=== PATIENT | female | born 1995 | race Caucasian/White ===

== ENCOUNTER → 2024-05-27 | Outpatient (CLI) | payer OTHER | LOC: M RAD 11:46 | PROVIDERS: ATTEND Obstetrics & Gynecology | DX: O26.899 Other specified pregnancy related conditions, unspecified trimester (principal) ==

== ENCOUNTER → 2024-07-22 | Outpatient (CLI) | payer OTHER ==
[~2024-07-22] MED LIST: CEPH500C; LABE100T6; MECL-209 PO; ONDA-282; SYNT25TA
== END ==
LOC: M EKG 14:51
PROVIDERS: ATTEND Obstetrics & Gynecology
DX: O99.281 Endocrine, nutritional and metabolic diseases complicating pregnancy, first trimester (principal); E03.9 Hypothyroidism, unspecified; Z3A.14 14 weeks gestation of pregnancy; O10.011 Pre-existing essential hypertension complicating pregnancy, first trimester

== ENCOUNTER 2024-07-24 17:28 | Emergency (ER) | payer OTHER ==
[~2024-07-24] VITALS: Ht 157.5 cm; Wt 119.7 kg
[2024-07-24] MEDS ORDERED: SYNT25TA (17:36)
[2024-07-24] MEDS ORDERED: CEPH500C (17:36)
[2024-07-24] MEDS ORDERED: ONDA-282 (17:36)
[2024-07-24] MEDS ORDERED: LABE100T6 (17:36)
[2024-07-24 18:36] LABS: BASO % 0.5 % (0.0-1.0); EOS # 0.4 10^3/uL (0.0-0.5); EOS % 5.5 % (0.0-3.0); HEMATOCRIT 38.3 % (36.0-47.0); HEMOGLOBIN 13.6 g/dl (12.0-15.5); LYMPH # 1.5 10^3/uL (1.5-5.0); LYMPH % 18.3 % (24.0-44.0); MEAN CORPUSCULAR HEMOGLOBIN 33.3 pg (27.0-33.0); MEAN CORPUSCULAR HGB CONC 35.5 g/dl (32.0-36.5); MEAN CORPUSCULAR VOLUME 93.6 fl (80.0-96.0); MONO # 0.6 10^3/uL (0.0-0.8); MONO % 7.6 % (2.0-8.0); NEUTROPHILS # 5.5 10^3/uL (1.5-8.5); NEUTROPHILS % 67.7 % (36.0-66.0); PLATELET COUNT, AUTOMATED 290 10^3/uL (150-450); RED BLOOD COUNT 4.09 10^6/uL (4.00-5.40)
[2024-07-24 18:55] LABS: ALKALINE PHOSPHATASE 38 U/L (35-104); ALT/SGPT 24 U/L (7.0-40); AST/SGOT 15 U/L (<34); BILIRUBIN,DIRECT < 0.1 MG/DL (<0.4); BILIRUBIN,TOTAL 0.4 MG/DL (0.3-1.2); BLOOD UREA NITROGEN 8 MG/DL (9-23); CALCIUM LEVEL 9.1 MG/DL (8.5-10.1); CARBON DIOXIDE LEVEL 22 MMOL/L (20-31); CHLORIDE LEVEL 107 MMOL/L (98-107); CREATININE FOR GFR 0.56 MG/DL (0.55-1.30); GLOMERULAR FILTRATION RATE > 60.0 (>60); GLUCOSE, FASTING 80 MG/DL (60-100); POTASSIUM SERUM 3.9 MMOL/L (3.5-5.1); SODIUM LEVEL 139 MMOL/L (136-145); TOTAL PROTEIN 6.5 G/DL (5.7-8.2)
[2024-07-24 19:58] LABS: CREATININE,RANDOM URINE 40.3 MG/DL
[2024-07-24 20:05] LABS: FREE T4 1.47 NG/DL (0.89-1.76); THYROID STIMULATING HORMONE 2.957 uIU/ML (0.55-4.78)
[2024-07-24] MEDS: NS (Normal Saline) 0.9% 1,000 ML IV ONE (20:07)
[2024-07-24 20:28] LABS: TOTAL PROTEIN,RANDOM URINE < 6.0 MG/DL (0.0-14.0)
[2024-07-24] MEDS: ONDANSETRON 4MG 2ML VIAL IV ONE (20:38)
[2024-07-24 21:00] LABS: MAGNESIUM LEVEL 1.9 MG/DL (1.8-2.4)
[2024-07-24 21:13] LABS: KETONE, URINE AUTO RFX 1+ mg/dL (NEGATIVE); LEUKOCYTE ESTERASE UR AUTO RFX NEGATIVE (NEGATIVE); MUCUS, URINE RFX SMALL (NEGATIVE); NITRITE, URINE AUTO RFX NEGATIVE (NEGATIVE); RBC, URINE AUTO RFX 0 /HPF (0-3); SQUAM EPITHELIAL CELL UR AURFX 3 /HPF (0-6); WBC, URINE AUTO RFX 1 /HPF (0-3)
[2024-07-24] MEDS: MECLIZINE 25 MG TABLET PO ONE ×2 (21:33→23:58)
[2024-07-24 22:37] LABS: CK-MB VALUE MASS < 1.0 NG/ML (<3.6)
[2024-07-24 22:42] LABS: CPK CREATINE PHOSPHOKINASE 71 U/L (34-145)
[2024-07-24] MEDS ORDERED: MECL-209 PO (23:21)
[2024-07-25 01:48] VITALS: BP 156/72; TEMP 96.7; O2SAT 100; O2SAT 99
[2024-07-25] MEDS ORDERED: MECL-209 PO (01:49)
== END 2024-07-25 01:56 | disposition home or self-care (01) ==
LOC: M ED 17:28
DX: O98.512 Other viral diseases complicating pregnancy, second trimester (principal); B34.2 Coronavirus infection, unspecified; R42 Dizziness and giddiness; O99.282 Endocrine, nutritional and metabolic diseases complicating pregnancy, second trimester; O13.2 Gestational [pregnancy-induced] hypertension without significant proteinuria, second trimester; Z3A.17 17 weeks gestation of pregnancy
CPT/HCPCS: 76815; 80048; 80076; 81001; 82550; 82553; 82570; 83735; 84156; 84439; 84443; 84484; 85025; 86850; 86900; 86901; 87486; 87581; 87633; 87798; 93005; 93041; 94760; 96361; 96374; 99285; J2405

== ENCOUNTER 2024-08-11 18:36 | Emergency (ER) | payer OTHER ==
[~2024-08-11] VITALS: Ht 157.5 cm; Wt 122.3 kg
[2024-08-11 20:28] LABS: APPEARANCE, URINE HAZY (CLEAR); BACTERIA, URINE AUTO NEGATIVE (NEGATIVE); BILIRUBIN, URINE AUTO NEGATIVE (NEGATIVE); BLOOD, URINE BLOOD NEGATIVE (NEGATIVE); COLOR, URINE YELLOW (YELLOW); GLUCOSE, URINE (UA) AUTO NEGATIVE (NEGATIVE); KETONE, URINE AUTO NEGATIVE (NEGATIVE); LEUKOCYTE ESTERASE, URINE AUTO NEGATIVE (NEGATIVE); MUCUS, URINE SMALL (NEGATIVE); NITRITE, URINE AUTO NEGATIVE (NEGATIVE); PROTEIN, URINE AUTO 1+ mg/dL (NEGATIVE); RBC, URINE AUTO 2 /HPF (0-3); SPECIFIC GRAVITY URINE AUTO 1.019 (1.002-1.035); SQUAMOUS EPITHELIAL CELL UR AU 12 /HPF (0-6); UROBILINOGEN, URINE AUTO 0.2 mg/dL (0.0-2.0); WBC, URINE AUTO 2 /HPF (0-3)
[2024-08-11 20:50] LABS: HEMATOCRIT 33.6 % (36.0-47.0); HEMOGLOBIN 11.8 g/dl (12.0-15.5); MEAN CORPUSCULAR HEMOGLOBIN 32.7 pg (27.0-33.0); MEAN CORPUSCULAR HGB CONC 35.1 g/dl (32.0-36.5); MEAN CORPUSCULAR VOLUME 93.1 fl (80.0-96.0); PLATELET COUNT, AUTOMATED 313 10^3/uL (150-450); RED BLOOD COUNT 3.61 10^6/uL (4.00-5.40); WHITE BLOOD COUNT 10.4 10^3/uL (4.0-10.0)
[2024-08-11 21:29] LABS: ALBUMIN 2.8 G/DL (3.2-5.2); ALKALINE PHOSPHATASE 39 U/L (35-104); ALT/SGPT 19 U/L (7.0-40); AST/SGOT 12 U/L (<34); BILIRUBIN,TOTAL 0.3 MG/DL (0.3-1.2); BLOOD UREA NITROGEN 9 MG/DL (9-23); CALCIUM LEVEL 8.7 MG/DL (8.5-10.1); CARBON DIOXIDE LEVEL 23 MMOL/L (20-31); CHLORIDE LEVEL 105 MMOL/L (98-107); CREATININE FOR GFR 0.52 MG/DL (0.55-1.30); GLOMERULAR FILTRATION RATE > 60.0 (>60); GLUCOSE, FASTING 81 MG/DL (60-100); MAGNESIUM LEVEL 1.7 MG/DL (1.8-2.4); POTASSIUM SERUM 3.8 MMOL/L (3.5-5.1); SODIUM LEVEL 139 MMOL/L (136-145); TOTAL PROTEIN 6.3 G/DL (5.7-8.2)
[2024-08-11] MEDS: MAGNESIUM OXIDE 400MG TAB (MAG-OX) PO ONE (22:11)
[2024-08-11 22:21] LABS: CREATININE,RANDOM URINE 132.7 MG/DL
[2024-08-11] MEDS: NS 500 ML IV ONE (23:26)
[2024-08-12 00:17] VITALS: BP 126/97; TEMP 97.7; O2SAT 98
== END 2024-08-12 00:25 | disposition home or self-care (01) ==
LOC: M ED 18:36
DX: O26.892 Other specified pregnancy related conditions, second trimester (principal); R42 Dizziness and giddiness; Z87.59 Personal history of other complications of pregnancy, childbirth and the puerperium; Z79.899 Other long term (current) drug therapy

== ENCOUNTER → 2024-08-27 | Outpatient (REF) | payer OTHER ==
[2024-08-27 14:29] LABS: THYROID STIMULATING HORMONE 1.862 uIU/ML (0.55-4.78)
[2024-08-27 14:34] LABS: FREE T4 1.35 NG/DL (0.89-1.76)
== END ==
LOC: M SFHCWAGY 12:41
PROVIDERS: ATTEND Specialist
DX: Z34.82 Encounter for supervision of other normal pregnancy, second trimester (principal)

== ENCOUNTER → 2024-09-03 | Outpatient (CLI) | payer OTHER | LOC: M WHC 10:09 | PROVIDERS: ATTEND Specialist | DX: O28.3 Abnormal ultrasonic finding on antenatal screening of mother (principal); Z3A.22 22 weeks gestation of pregnancy ==

== ENCOUNTER 2024-09-12 15:58 | Outpatient (CLI) | payer OTHER ==
[~2024-09-12] VITALS: Ht 157.5 cm; Wt 123.6 kg
[2024-09-12 16:28] VITALS: BP 121/68
[2024-09-12] MEDS ORDERED: ASPI81CH33 PO (16:36)
[2024-09-12] MEDS ORDERED: PRENTAB9 PO (16:37)
[2024-09-12 16:44] VITALS: BP 120/72
[2024-09-12 16:59] VITALS: BP 117/67
[2024-09-12 17:14] VITALS: BP 112/64
[2024-09-12 17:29] VITALS: BP 118/71
== END 2024-09-12 18:05 | disposition home or self-care (01) ==
LOC: M LDO 15:58
PROVIDERS: ATTEND Obstetrics & Gynecology
DX: O10.02 Pre-existing essential hypertension complicating childbirth (principal); Z3A.24 24 weeks gestation of pregnancy; Z86.32 Personal history of gestational diabetes; Z87.59 Personal history of other complications of pregnancy, childbirth and the puerperium; Z79.890 Hormone replacement therapy; Z79.82 Long term (current) use of aspirin; Z79.899 Other long term (current) drug therapy
CPT/HCPCS: 59025; G0463

== ENCOUNTER → 2024-09-23 | Outpatient (CLI) | payer OTHER ==
[~2024-09-23] MED LIST changes: +ASPI81CH33 PO; +PRENTAB9 PO
== END ==
LOC: M WHC 12:56
PROVIDERS: ATTEND Specialist
DX: Z34.82 Encounter for supervision of other normal pregnancy, second trimester (principal); Z3A.25 25 weeks gestation of pregnancy

== ENCOUNTER → 2024-09-30 | Outpatient (CLI) | payer OTHER ==
[2024-09-30 15:31] LABS: HEMATOCRIT 34.7 % (36.0-47.0); HEMOGLOBIN 12.2 g/dl (12.0-15.5); MEAN CORPUSCULAR HEMOGLOBIN 33.2 pg (27.0-33.0); MEAN CORPUSCULAR HGB CONC 35.2 g/dl (32.0-36.5); MEAN CORPUSCULAR VOLUME 94.6 fl (80.0-96.0); PLATELET COUNT, AUTOMATED 280 10^3/uL (150-450); RED BLOOD COUNT 3.67 10^6/uL (4.00-5.40); WHITE BLOOD COUNT 10.3 10^3/uL (4.0-10.0)
[2024-09-30 15:34] LABS: TOTAL PROTEIN,RANDOM URINE 11.3 MG/DL (0.0-14.0)
[2024-09-30 15:49] LABS: URIC ACID 6.2 MG/DL (3.1-7.8)
[2024-09-30 15:51] LABS: LDH LACTATE DEHYDROGENASE 135 U/L (120-246)
[2024-09-30 15:52] LABS: ALT/SGPT 23 U/L (7.0-40); AST/SGOT 13 U/L (<34); BILIRUBIN,TOTAL 0.2 MG/DL (0.3-1.2); CREATININE FOR GFR 0.54 MG/DL (0.55-1.30); GLOMERULAR FILTRATION RATE > 90.0 (>60); GLUCOSE CHALLENGE TEST 1 HOUR 106 MG/DL (LESS THAN 140)
[2024-09-30 16:20] LABS: HIV 1&2 SCREEN NEGATIVE (NEGATIVE)
[2024-09-30 16:27] LABS: HEPATITIS C VIRUS ABY INDEX 0.03 INDEX (<0.8)
[2024-09-30 16:48] LABS: Trichomonas vaginalis (AMP) NOT DETECTED (NEGATIVE)
[2024-09-30 17:12] LABS: GC DNA AMPLIFICATION NEGATIVE (NEGATIVE)
== END ==
LOC: M PLALAB 11:26
PROVIDERS: ATTEND Advanced Practice Midwife
DX: O10.019 Pre-existing essential hypertension complicating pregnancy, unspecified trimester (principal); Z3A.00 Weeks of gestation of pregnancy not specified

== ENCOUNTER → 2024-11-29 | Outpatient (CLI) | payer OTHER ==
[~2024-11-29] MED LIST changes: +LABE20TAB PO; +LEVO200T4 PO; +LEVO25TA5 PO
== END ==
LOC: M WHC 11:17
PROVIDERS: ATTEND Obstetrics & Gynecology
DX: O41.03X0 Oligohydramnios, third trimester, not applicable or unspecified (principal); O10.013 Pre-existing essential hypertension complicating pregnancy, third trimester; Z3A.35 35 weeks gestation of pregnancy

== ENCOUNTER → 2024-12-02 | Outpatient (REF) | payer OTHER | LOC: M SFHCWAGY 14:58 | PROVIDERS: ATTEND Specialist | DX: Z34.03 Encounter for supervision of normal first pregnancy, third trimester (principal); Z3A.36 36 weeks gestation of pregnancy ==

== ENCOUNTER 2024-12-13 21:06 | Outpatient (CLI) | payer OTHER ==
[~2024-12-13] VITALS: Ht 157.5 cm; Wt 132.9 kg
[2024-12-13] VITALS (11 sets, daily range): BP systolic 108–134; BP diastolic 64–99; TEMP 98.4
[~2024-12-13 21:06] MED LIST changes: -CLAR5TAB11 PO
[2024-12-13] MEDS ORDERED: CLAR5TAB11 PO (21:32)
[2024-12-13] MEDS: diphenhydrAMINE 50 MG/ML VIAL IM ONE (22:25)
[2024-12-13] MEDS: METOCLOPRAMIDE 10 MG TAB PO ONE (22:25)
[2024-12-13 23:11] LABS: TOTAL PROTEIN,RANDOM URINE 32.8 MG/DL (0.0-14.0)
[2024-12-13] MEDS: LABETALOL 200 MG TAB PO ONE (23:24)
== END 2024-12-14 00:09 | disposition home or self-care (01) ==
LOC: M LDO 21:06
PROVIDERS: ATTEND Advanced Practice Midwife
DX: O10.013 Pre-existing essential hypertension complicating pregnancy, third trimester (principal); O34.211 Maternal care for low transverse scar from previous cesarean delivery; O99.283 Endocrine, nutritional and metabolic diseases complicating pregnancy, third trimester; O26.23 Pregnancy care for patient with recurrent pregnancy loss, third trimester; O34.03 Maternal care for unspecified congenital malformation of uterus, third trimester; O99.713 Diseases of the skin and subcutaneous tissue complicating pregnancy, third trimester; E03.9 Hypothyroidism, unspecified; Q51.3 Bicornate uterus; Z86.32 Personal history of gestational diabetes
CPT/HCPCS: 36415; 59025; 76816; 76819; 76820; 80053; 82542; 82570; 84156; 96372; G0463; J1200

== ENCOUNTER → 2024-12-13 | Outpatient (CLI) | payer OTHER ==
[~2024-12-13] MED LIST changes: +CLAR5TAB11 PO
== END ==
LOC: M WHC 11:09
PROVIDERS: ATTEND Obstetrics & Gynecology
DX: O10.019 Pre-existing essential hypertension complicating pregnancy, unspecified trimester (principal); Z3A.37 37 weeks gestation of pregnancy

== ENCOUNTER → 2024-12-13 | Outpatient (CLI) | payer OTHER ==
[2024-12-13 18:35] LABS: ALT/SGPT 15 U/L (7.0-40); AST/SGOT 17 U/L (<34); CALCIUM LEVEL 9.1 MG/DL (8.5-10.1); CARBON DIOXIDE LEVEL 22 MMOL/L (20-31); CHLORIDE LEVEL 104 MMOL/L (98-107); CREATININE FOR GFR 0.61 MG/DL (0.55-1.30); GLOMERULAR FILTRATION RATE > 90.0 (>60); POTASSIUM SERUM 4.3 MMOL/L (3.5-5.1); SODIUM LEVEL 139 MMOL/L (136-145)
== END ==
LOC: M PLALAB 14:00
PROVIDERS: ATTEND Advanced Practice Midwife
DX: O99.713 Diseases of the skin and subcutaneous tissue complicating pregnancy, third trimester (principal)

== ENCOUNTER 2024-12-20 05:29 | Inpatient (IN) | payer OTHER ==
[~2024-12-20] VITALS: Ht 157.5 cm; Wt 133.6 kg
[2024-12-20] VITALS (9 sets, daily range): BP systolic 126–139; BP diastolic 63–95; TEMP 97.1; O2SAT 95–100
[~2024-12-20 05:29] MED LIST changes: +CLAR5TAB11 PO
[2024-12-20] MEDS: LEVOTHYROXINE 75 MCG TABLET (0.075 MG) PO SCH (06:00)
[2024-12-20] MEDS: LACTATED RINGER'S 1000 ML IV STA (06:14)
[2024-12-20 06:29] LABS: PLATELET COUNT, AUTOMATED 296 10^3/uL (150-450)
[2024-12-20] MEDS ORDERED: MORPHINE PRES-FREE INJ 10 MG/10 ML VIAL As Ordered ONE (07:21)
[2024-12-20] MEDS ORDERED: OXYTOCIN INJ 10UNITS/ML 1ML VIAL As Ordered ONE (07:22)
[2024-12-20] MEDS ORDERED: OXYTOCIN 30UNITS IN 0.9% NaCl 500ML IV BAG As Ordered ONE (07:22)
[2024-12-20] MEDS: LR 1,000 ML IV SCH ×2 (07:26→08:40)
[2024-12-20] MEDS: ceFAZolin SODIUM 3 GM in DEXTROSE 5% (D5W) MINI-BAG PLU 100 ML IV ONE (07:26)
[2024-12-20] MEDS: BICITRA 30 ML SOLN UDC PO ONE (07:26)
[2024-12-20] MEDS ORDERED: ONDANSETRON 4MG 2ML VIAL As Ordered ONE (07:27)
[2024-12-20] MEDS ORDERED: dexAMETHasone 4 MG/ML 1 ML VIAL As Ordered ONE (07:27)
[2024-12-20 07:28] LABS: HIV 1&2 SCREEN NEGATIVE (NEGATIVE)
[2024-12-20 07:35] LABS: HEPATITIS C VIRUS ABY INDEX < 0.02 INDEX (<0.8)
[2024-12-20] MEDS ORDERED: ACETAMINOPHEN 1000MG/100ML IV BAG As Ordered ONE (07:59)
[2024-12-20] MEDS ORDERED: KETOROLAC 30 MG/ML 1 ML VIAL As Ordered ONE (07:59)
[2024-12-20] MEDS ORDERED: PHENYLephrine 500MCG 5ML (100MCG/ML) SYRINGE As Ordered ONE (08:00)
[2024-12-20] MEDS ORDERED: RHOGAM 300MCG (1500IU) INJ IM SCH (08:40)
[2024-12-20] MEDS ORDERED: PERCOCET 5MG/325MG TAB PO PRN (08:40)
[2024-12-20] MEDS ORDERED: SIMETHICONE 80MG CHEW TAB PO PRN (08:40)
[2024-12-20 08:50] LABS: CORD GAS ABE V -1.7; CORD GAS HCO3 V 23.1 MMOL/L; CORD GAS O2 SAT V 72.5 %; CORD GAS PCO2 V 39.5 mmHg; CORD GAS PH V 7.384 UNITS; CORD GAS PO2 V 29.8 mmHg; CORD GAS SBC V 22.4 MMOL/L; CORD GAS TCO2 V 24.3 MMOL/L
[2024-12-20] MEDS: PRENATAL VITAMINS CHEWABLE TABLET PO SCH (09:00)
[2024-12-20] MEDS ORDERED: NALOXONE INJ 0.4 MG/1 ML VIAL IV PRN ×2 (10:15)
[2024-12-20] MEDS ORDERED: HYDROMORPHONE HCL 0.5 MG/0.5 ML SYRINGE IV PRN (10:15)
[2024-12-20] MEDS ORDERED: ONDANSETRON 4MG 2ML VIAL IV PRN (10:15)
[2024-12-20] MEDS ORDERED: MEPERIDINE 25 MG/ML 1 ML VIAL IV PRN (10:15)
[2024-12-20] MEDS ORDERED: **NOTE PATIENT COMMENT** MISC XX SCH (10:15)
[2024-12-20] MEDS ORDERED: diphenhydrAMINE 50 MG/ML VIAL IV PRN (10:15)
[2024-12-20] MEDS: SLF 3 ML SYR IV SCH (11:00)
[2024-12-20] MEDS: KETOROLAC 30 MG/ML 1 ML VIAL IV SCH (14:48)
[2024-12-20] MEDS ORDERED: ceFAZolin SOD 1 GM in DEXTROSE 5% (D5W) ADV/MINI-BAG 50 ML IV SCH (21:30)
[2024-12-21 01:54] VITALS: BP 115/68; O2SAT 98
[2024-12-21] MEDS: KETOROLAC 30 MG/ML 1 ML VIAL IV SCH (05:04)
[2024-12-21 05:59] VITALS: BP 128/78; O2SAT 100
[2024-12-21 07:18] LABS: PLATELET COUNT, AUTOMATED 240 10^3/uL (150-450)
[2024-12-21] MEDS: DOCUSATE SODIUM 100 MG CAPSULE PO PRN (09:54)
[2024-12-21 10:03] VITALS: BP 122/75; O2SAT 98
[2024-12-21] MEDS: IBUPROFEN 800 MG TAB PO SCH (12:54)
[2024-12-21 14:11] VITALS: BP 124/80; O2SAT 97
[2024-12-21 17:54] VITALS: BP 127/81; O2SAT 97
[2024-12-21] MEDS: PERCOCET 5MG/325MG TAB PO PRN (20:38)
[2024-12-22] MEDS: ONDANSETRON 4MG 2ML VIAL IV PRN (00:22)
[2024-12-22 06:15] VITALS: BP 134/81; O2SAT 98
[2024-12-22] MEDS ORDERED: OXYC1TAB23 PO (07:44)
[2024-12-22] MEDS ORDERED: COLA100C5 PO (07:44)
[2024-12-22] MEDS ORDERED: IBUP80TA PO (07:44)
[2024-12-22] MEDS ORDERED: MEASLES,MUMPS,RUBELLA VACCINE INJ (MMR-II) SC.IMMUN ONE (09:00)
== END 2024-12-22 13:25 | disposition home or self-care (01) | DRG 773 ==
LOC: M LDI 05:29 → M OBS 10:00
PROVIDERS: ADMIT Specialist; ATTEND Specialist
PROC: 10D00Z1 Extraction of Products of Conception, Low, Open Approach (ICD-10-PCS; principal; 2024-12-20 07:30)
DX: O10.02 Pre-existing essential hypertension complicating childbirth (principal); O34.211 Maternal care for low transverse scar from previous cesarean delivery; Z37.0 Single live birth; Z3A.38 38 weeks gestation of pregnancy